=== PATIENT | male | born 1950 | race Caucasian/White ===

== ENCOUNTER 2016-06-27 10:11 | Inpatient (IN) | payer MEDICARE, OTHER ==
[2016-06-27] VITALS (15 sets, daily range): BP systolic 113–134; BP diastolic 63–80; PULSE 56–86; RESP 12–21; O2SAT 95–100
[~2016-06-27] VITALS: Ht 188 cm; Wt 100.1 kg
[~2016-06-27 10:11] MED LIST: ALLO300T2 PO; Bupivacaine Liposome 1.3% 20 mL Inj INFILTRATE ONE; Bupivacaine Liposome 1.3% 20 mL Inj INFILTRATE SCH; CeFAZolin 2 Gm/50 mL D5W IV Premix IV ONE; CeFAZolin Inj 2 GM in IV Premix 1 EACH IV ONE; Lactated Ringer's 1,000 ML IV ONE; Tranexamic Acid 100 mg/mL 10 mL Inj IV ONE; Vancomycin Inj 1,000 MG in IV Premix 1 EACH IV ONE; Vancomycin Inj 1,500 MG in 0.9% Sodium Chloride 500 ML IV ONE
[2016-06-27] MEDS ORDERED: CeFAZolin Inj 2 gm / 50mL D5W IV ONE (10:40)
[2016-06-27] MEDS ORDERED: MULT-1018 PO (11:05)
[2016-06-27] MEDS ORDERED: VIT D PO (11:05)
[2016-06-27] MEDS ORDERED: Lactated Ringer's 1,000 ML IV SCH (12:38)
[2016-06-27] MEDS ORDERED: Lactated Ringer's 500 ML IV PRN (12:38)
--- NOTE | 2016-06-27 12:38 | PCM.HPANE ---
Patient Data Surgeon Admitting Provider: Attending Provider:Keron Bower MD Primary Care Physician:Chaitanya Leach MD Other [place] [facility] Reason for Visit Right Knee Arthritis Ht/WT & BMI Height (Feet): 6 Height (Inches): 2 Weight (Kilograms): 100.1 Body Mass Index 28.00 Allergies Coded Allergies: No Known Allergies (Unverified , 03/23/16) Past Anesthesia History Anesthesia History: Denies:: Anesthesia Reactions, Malignant Hyperthermia Diabetes History Hx Diabetes?: No MRSA MRSA: No Medications Hypertension Medication: No Home Meds Incl Beta Demetrius: No Reported Medications [Vit D] No Conflict Check Po Daily 06/27/16 Multivitamin (Multi Vitamin Daily)1 Each Tablet1 Each PO DAILY 30 Days Ref 0 06/27/16 Allopurinol 300 Mg [id number] Mg PO DAILY Ref 0 06/23/16 Discontinued Reported Medications Allopurinol 300 Mg [id number] Mg PO DAILY Ref 0 03/23/16 History History of ENT Problems?: No Hx of Heart Problems?: No Cardiovascular History: Denies:: Heart Murmur Hypertension Valvular Heart Disease Hx of Respiratory Problem?: No Respiratory History: Denies:: Asthma COPD Emphysema Oxygen Administration Use of C-PAP Machine Hx Neurologic Problems?: No Hx of GI Problems?: Yes Gastrointestinal History: Positive for:: Diverticulitis (S/P SMALL BOWEL RESECTION) Gall Bladder Disease (removed) Gastrointestinal Bleeding (REMOTE HX OF ULCERS) Denies:: Gastroesphageal Reflux (HX OF PUD) Other GI Pertinent History: prior hx of hernia repair and bowel resection per EMR Hx of Problems?: No Male Hx: Positive for:: Testicular Surgery (S/P VASECTOMY??,VAS DEFERENS RECONSTRUCTION) Denies:: Prostate Problems Scrotal Mass Skin History: Denies:: History Skin Disorders? Pressure Ulcers Hx Musculoskeletal Problems?: Yes Musculoskeletal History: Positive for:: Degenerative Joint Musculoskeletal Trauma (right knee current admission problem) Osteoarthritis Denies:: Joint Replacement Hx of Psycho/Social Problems?: No Hx Surgeries?: Yes (george, hernia, bowel resection, knee arthroscopy) Hx Any Other Health Problems?: Yes Other History: Denies:: Cancer Endocrine Disease Hospitalization Thyroid Disease History Blood Transfusions: Denies:: Blood Transfusions Hx Diabetes: No Have You Smoked inLast 12 mo: No Stop/Bang S-Snoring: Do You Snore Loudly: No T-Tired: feel tired, fatigued: No O-Obsered: Observed not breath: No P-Blood Pressure: treated: No B- Body Mass Index > 35 kg/m2: No A- Age over 50: Yes N- Neck Large Circumference: No G- Gender Male: Yes JILLIAN Total Score: 2 JILLIAN Risk Assessment: Low Risk, <3 Yes Risk Assessment Category Category 1A: Patient has history of documented sleep apnea, and HAS NOT received any narcotic, sedative or anesthesia administration during this stay. Category 1B: Patient has history of documented sleep apnea, and HAS received any narcotic , sedative or anesthesia administration during this stay Category 2: Patient has SUSPECTED Obstructive Sleep Apnea, and HAS received any narcotic , sedative or anesthesia administration during this stay. Category 3: Patient has SUSPECTED Obstructive Sleep Apnea and HAS NOT received narcotic, sedative or anesthesia administration during this stay. Category 4: Outpatient in Procedural Areas with known sleep apnea or who screen positive for High Risk via the STOP/BANG questionnaire. Exam Exam General Appearance: Alert, Oriented X3, Cooperative, No Acute Distress HEENT/AIRWAY: MP 2 Lungs: Clear to Auscultation, Normal Air Movement Heart: Exam Unremarkable, Regular Rate/Rhythm, No Murmurs/Rubs/Gallops Meds/Labs/Diagnostics Admission Meds Current Medications Lactated Ringer's (Lr) 1,000 ml @ 120 mls/hr Q8H20M ONCE IV Last administered on 06/27/16t 10:18; Start 06/27/16 at 05:00; Stop 06/27/16 at 13:19 Plan Impression Patient chart reviewed, patient interviewed and anesthestic plan with risks, benefits, and alternatives discussed, and informed consent obtained. ASA Physical Status: ASA2 Mod Systemic Disease Anesthetic Plan: GA, Regional Block, SAB Bene/Risks/Altern/Consents: Yes HP Complete Prior to Induction: Yes Grant Lamb MD Jun 27, 2016 10:42
[2016-06-27] MEDS ORDERED: Bupivacaine Liposome 1.3% 20 mL Inj ONE (12:39)
[2016-06-27] MEDS ORDERED: 0.9% Sodium Chloride 100 ML ONE (12:39)
[2016-06-27] MEDS ORDERED: Atropine 0.4 mg/mL Inj IVPUSH PRN (12:40)
[2016-06-27] MEDS ORDERED: Ondansetron 2 mg/mL 2 mL Inj IVPUSH PRN ×2 (12:40→18:40)
[2016-06-27] MEDS ORDERED: MetoCLOpramide 5 mg/mL 2 mL Inj IVPUSH PRN ×2 (12:40→18:40)
[2016-06-27] MEDS ORDERED: fentaNYL-PF 50 mCg/mL 2 mL Inj IVPUSH PRN (12:40)
[2016-06-27] MEDS ORDERED: Phenylephrine 10,000 mCg/mL Inj IVPUSH PRN (12:40)
[2016-06-27] MEDS ORDERED: HYDROmorphone 1 mg/mL Inj IVPUSH PRN (12:40)
[2016-06-27] MEDS ORDERED: EPHEDrine Sulfate 50 mg/mL Inj IVPUSH PRN (12:40)
[2016-06-27] MEDS ORDERED: Labetalol 5 mg/mL 4 mL Inj IV PRN (12:40)
[2016-06-27] MEDS: Tranexamic Acid 100 mg/mL 10 mL Inj ONE (13:27)
[2016-06-27] MEDS ORDERED: Bupivacaine-MPF 0.25%/EPI 30 mL Inj INFILTRATE ONE ×2 (13:42)
[2016-06-27] MEDS ORDERED: Gentamicin 40 mg/mL 2 mL Inj IRRIGATION ONE ×2 (13:42)
[2016-06-27] MEDS ORDERED: Bupivacaine Liposome 1.3% 20 mL Inj INFILTRATE ONE ×2 (13:42)
[2016-06-27] MEDS ORDERED: Lactated Ringer's 1,000 ML IV ONE (14:00)
--- NOTE | 2016-06-27 15:13 | PCM.ANEP2 ---
Post Anesthesia Evaluation ASA/CMS Post Anesthesia VS in Patient's Normal Range?: Yes Resp Stable; Airway Patent?: Yes CV Function & Hydration Stable: Yes Mental Status Recovered?: Yes Pain control Satisfactory?: Yes N/V Control Satisfactory?: Yes Grant Lamb MD Jun 27, 2016 15:13
--- NOTE | 2016-06-27 15:13 | PCM.ANEP1 ---
Post Anesthesia Phase 1 PACU Phase 1 Assessment Vital Signs Vital Signs Date Time Temp Pulse Resp B/P Pulse Ox O2 Delivery O2 Flow Rate FiO2 06/27/16 15:06 36.1 65 18 121/63 100 Simple Mask 8 06/27/16 10:51 36.1 57 18 134/80 97 Room Air 06/27/16 10:41 36.1 57 18 134/80 97 Room Air Anesthetic Administered: GA, Regional Block, SAB Level of Alertness: Sleepy, easy to arouse CHOWDHURY's with Equal Strength: No Pain: No Nausea or Vomiting: No Oxygen Delivery: Simple Mask Lungs: Clear to Auscultation, Normal Air Movement Grant Lamb MD Jun 27, 2016 15:13
--- NOTE | 2016-06-27 15:31 | DRSVH ---
PROCEDURE: X-RAY RIGHT KNEE, ONE OR TWO VIEWS ([id number]) INDICATIONS: 66 year-old male with right knee replacement. TECHNIQUE: 2 postoperative view(s) of the knee acquired. COMPARISON: [facility], CR, XR KNEE ARTHRITIC SERIES LT, 06/08/2016, 9:47. [facility], CR, XR KNEE ARTHRITIC SERIES BI, 03/24/2015, 10:10. FINDINGS: Bones: Patient is status post knee joint arthroplasty. Hardware components are in expected position s. Visualized bony structures are intact. Soft tissues: Overlying postoperative changes are noted, including intra-articular surgical drain, a ir and gas. IMPRESSION: Status post right knee arthroplasty, with hardware components in expected positions. Dictated by: Noel Hart M.D. on 06/27/2016 at 15:29 Approved by: Noel Hart M.D. on 06/27/2016 at 15:29
[2016-06-27 15:45] LABS: APPEARANCE,URINE CLEAR (CLEAR,HAZY); COLOR,URINE YELLOW (YELLOW); OCCULT BLOOD,URINE NEGATIVE (NEGATIVE); UROBILINOGEN,URINE NORMAL (NORMAL)
[2016-06-27] MEDS ORDERED: Ondansetron 2 mg/mL 2 mL Inj ONE (16:40)
[2016-06-27] MEDS ORDERED: EPHEDrine/NS 5 mg/mL 5 mL Syringe ONE (16:40)
[2016-06-27] MEDS ORDERED: Glycopyrrolate 0.2 MG/ML 1mL Inj ONE (16:40)
[2016-06-27] MEDS ORDERED: fentaNYL-PF 50 mCg/mL 2 mL Inj ONE (16:40)
[2016-06-27] MEDS ORDERED: Phenylephrine/NS 100 mCg/mL 10 mL Syringe IVPUSH ONE (16:40)
[2016-06-27] MEDS ORDERED: Dexamethasone 4 mg/mL Inj ONE (16:40)
[2016-06-27] MEDS ORDERED: Propofol 10,000 mCg/mL 20 mL Inj ONE (16:40)
[2016-06-27] MEDS ORDERED: oxyCODONE-Acetamin 5-325 mg Tablet PO ONE (18:17)
[2016-06-27] MEDS ORDERED: Vancomycin Dose per Pharmacist XX ONE (18:30)
[2016-06-27] MEDS ORDERED: diphenhydrAMINE 25 mg Capsule PO PRN (18:40)
[2016-06-27] MEDS ORDERED: HYDROcodone-APAP 5-325 mg Tablet PO PRN (18:40)
[2016-06-27] MEDS: Lactated Ringer's 1,000 ML IV SCH (18:41)
[2016-06-27] MEDS ORDERED: LORazepam 0.5 mg Tablet PO PRN (18:45)
[2016-06-27] MEDS ORDERED: hydrOXYzine Inj 50 MG/1 mL SDV IM PRN (18:45)
[2016-06-27] MEDS ORDERED: Sodium Biphos-Phos 133 mL Enema RECTAL PRN (18:45)
[2016-06-27] MEDS: Ketorolac 15 mg/mL Inj IVPUSH SCH (20:02)
[2016-06-27] MEDS: Magnesium Hydroxide 10 mL Oral Concentration PO SCH (20:28)
[2016-06-27] MEDS: CeFAZolin Inj 2 GM in IV Premix 1 EACH IV SCH (20:28)
[2016-06-27] MEDS: oxyCODONE-Acetamin 5-325 mg Tablet PO PRN (23:03)
[2016-06-28 00:46] VITALS: BP 115/65; PULSE 50; RESP 16; O2SAT 95
--- NOTE | 2016-06-28 00:55 | OP ---
[address] [address] OPERATIVE REPORT PATIENT: KELLIE RUIZ : 1950 MR#: [id number] ADMIT: 06/27/2016 JOB ID: [id number] DATE OF SURGERY: 06/27/2016 PREOPERATIVE DIAGNOSIS(ES): Profound osteoarthritis right knee with significant varus deformity. POSTOPERATIVE DIAGNOSIS(ES): Profound osteoarthritis right knee with significant varus deformity. PROCEDURE: Total knee replacement right knee. SURGEON: Keron Bower MD EMBLEM FUSER TENDER: Inés Alicea PA-C. [employer] Crewmember required due to the complexity of the operation. COMPLICATIONS: None. INDICATIONS: Severe profound osteoarthritis symptoms uncontrolled by conservative treatment techniques in a patient who understands and accepts the potential for risks and complications, which include, but is not limited to infection, thromboembolic, neurovascular events, as well as potential for progressive arthritis in unresurfaced compartments. PROCEDURE: The patient was prepped and draped in usual sterile fashion. An anteromedial approach was made. The patella was subluxed laterally, cut transversely, sized to a 35. Patellar protection plate was utilized. The drill holes placed in the distal femur and a +2 depth distal femoral cut was made in 5 degrees valgus. The femur was sized to a 10 component. Chamfer block was set and chamfer cuts were made. All meniscal tissue and osteophytes were removed from the knee. The tibia was cut with the extramedullary tool. Bone fragment removed, was sized to a G tibial component fixed in appropriate position, rotation, drill holes and punch was utilized. Trial reduction was performed and a 10 mm medial was utilized. Excellent tracking, soft tissue tension, range of motion and alignment was achieved. Patient tolerated the procedure well. There were no complications at this point. Pressurized lavage followed by pressurized cementation. Excess cement was removed during the curing process. Final construct was assembled. Excellent tracking and alignment was obtained. The tourniquet was let down. Hemostasis was achieved. Deep Hemovac drain was left. The knee was closed with #2 Quill deep followed by 2-0 Vicryl, 3-0, and a 4-0 intracuticular stitch. Patient tolerated the procedure well. No complications. Taken to the recovery room in stable condition.
[2016-06-28] MEDS: Ketorolac 15 mg/mL Inj IVPUSH SCH ×2 (02:40→08:44)
[2016-06-28] MEDS: oxyCODONE-Acetamin 5-325 mg Tablet PO PRN ×5 (04:45→21:15)
[2016-06-28] MEDS: CeFAZolin Inj 2 GM in IV Premix 1 EACH IV SCH (04:45)
--- NOTE | 2016-06-28 05:00 | NUR ---
Post op Pt is doing very well post op; vitals stable, full sensation and movement in right foot, pain adequately controlled with scheduled Toradol and prn Percocet, denies nausea, carlton patent. Hemovac putting out high volume of bloody discharge; initially drained 210 ml within first 2 hours after unclamping followed by gradually slowing output over next 6 hours. Has not mobilized yet. Hourly rounding ongoing.
[2016-06-28 05:51] LABS: BASOPHILS % (AUTO) 0.1 % (0-3); EOSINOPHILS % (AUTO) 0 % (0-5); MONOCYTES % (AUTO) 9.1 % (4-12); Mean Corpuscular Hemoglobin 33.3 pg (27.0-35.0); Mean Corpuscular Volume 96.2 fL (81-100); NEUTROPHILS % (AUTO) 77.8 % (40-74); Platelet Count 169 bil/L (150-400)
[2016-06-28 06:08] VITALS: BP 123/71; PULSE 74; RESP 18; O2SAT 100
--- NOTE | 2016-06-28 08:01 | PCM.PNORTH ---
Subjective Date of Service: Jun 28, 2016 Visit Information: Reason for Visit Right Knee Arthritis Surgery/Surgery Date R TKA 06/27/16 Post-Op Day # 1 Date of Admission: Jun 27, 2016 at 16:39 Hospital Day # Subjective Patient states he has a dull achy pain that rates at about a 2 that is easily managed with oral pain medications. He is asking for his carlton to be removed so he may begin ambulating. No concerns at this time. Postop General: No Complaints, No Shortness of Breath, No Chest Pain Pain Management: PO Objective Exam Objective Patient sitting up in bed Vital Signs and I/O Vital Sign - Last Date Time Temp Pulse Resp B/P Pulse Ox O2 Delivery O2 Flow Rate FiO2 06/28/16 06:08 36.6 74 18 123/71 100 Room Air 06/27/16 15:10 8 Intake and Output 06/27/16 06/27/16 06/28/16 Cumulative From/Thru 15:00 23:00 07:00 03/23/16 12:39 - 06/28/16 06:25 Intake Total 1750 ml 500 ml 1570 ml 3820 ml Output Total 550 ml 400 ml 1455 ml 2405 ml Balance 1200 ml 100 ml 115 ml 1415 ml Intake Oral 400 ml 750 ml 1150 ml IV Total 1750 ml 100 ml 820 ml 2670 ml Output Urine Total 500 ml 400 ml 1000 ml 1900 ml Drainage Total 0 ml 455 ml 455 ml Estimated Blood Loss 50 ml 50 ml Lab & Micro Results Laboratory Tests Test 06/27/16 15:29 06/28/16 05:38 Urine Color Yellow (YELLOW) Urine Appearance Clear (CLEAR,HAZY) Urine pH 6.0 (5.0-8.0) Urine Specific [place] 1.025 (1.003-1.035) Urine Protein Negativemg/dL (NEG,TRACE) Urine Glucose (UA) Negativemg/dL (NEGATIVE) Urine Ketones Negativemg/dL (NEGATIVE) Urine Occult Blood Negative (NEGATIVE) Urine Nitrite Negative (NEGATIVE) Urine Bilirubin Negative (NEGATIVE) Urine Urobilinogen Normalmg/dL (NORMAL) Urine Leukocyte Esterase Negative (NEGATIVE) Urine RBC 0-2/hpf (0-2) Urine WBC 0-5/hpf (0-5) Urine Epithelial Cells None/hpf (NONE-MOD) Urine Crystals None seen (NONE SEEN) Urine Bacteria Few/hpf (NONE-FEW) Urine Hyaline Casts None/lpf (NONE) Urine Granular Casts None seen (NONE SEEN) Urine Waxy Casts None seen (NONE SEEN) Urine Red Blood Cell Casts None seen (NONE SEEN) Urine White Blood Cell Casts None seen (NONE SEEN) Urine Mucus None seen (None Seen) Urine Trichomonas None seen (NONE SEEN) Urine Yeast None (NONE SEEN) Urinalysis Comment None Urine Culture Reflexed Not indicated White Blood Count 9.2th/mm3 (3.8-10.1) Red Blood Count 3.96mil/mm3 (4.40-5.80) Hemoglobin 13.2g/dL (13.8-17.2) Hematocrit 38.1% (41.0-50.0) Mean Corpuscular Volume 96.2fL (81-100) Mean Corpuscular Hemoglobin 33.3pg (27.0-35.0) Mean Corpuscular Hemoglobin Concent 34.6% (32.0-37.0) Red Cell Distribution Width 13.1% (12.3-15.4) Platelet Count 169bil/L (150-400) Neutrophils (%) (Auto) 77.8% (40-74) Lymphocytes (%) (Auto) 12.9% (14-46) Monocytes (%) (Auto) 9.1% (4-12) Eosinophils (%) (Auto) 0% (0-5) Basophils (%) (Auto) 0.1% (0-3) Result Diagram: 06/28/16 0538 General Appearance: Alert, Oriented X3, Cooperative, No Acute Distress Extremities: Distal Pulses Palpable, Warm, No Compartment Syndrom Noted Postop Sensory Motor: Distal Motor Intact, Movement in Toes, Distal Sensation Intact, NVI Distally SURGICAL WOUND : Wound Location/Description Perioperative dressing clean, dry and intact Drain Location Body Site: Knee Incision General Appearance: No Direct Observation Wound Drainage Type: Hemovac (D/C today) Activity: Ambulate with PT (WBAT with FWW) Catheters: Urethral 2 Way Carlton (D/C today) Assessment & Plan Impression POD#1 right TKA Problems: Plan Weightbearing: Weightbearing as tolerated from a walker DVT prophylaxis: Aspirin 81 mg twice a day 6 weeks Physical therapy for transfers, progressive ambulation, strengthening Wound care: Perioperative dressing will be changed to an island dressing tomorrow by PA Analgesia: Continue oral pain management Discharge plan: Discharge home tomorrow most likely. Start outpatient physical therapy next week. Follow-up plan: In 2 weeks at [facility] with PA for wound check and at [address] Bower with x-rays Inés Alicea PA-C Jun 28, 2016 08:01
[2016-06-28 08:56] VITALS: BP 112/63; PULSE 69; RESP 16; O2SAT 100
--- NOTE | 2016-06-28 09:56 | NUR ---
Evaluation completed. Please go to "Notes" then click on "Assessments and Notes" (bottom left corner of screen). Then select appropriate discipline tab on top of screen.
[2016-06-28] MEDS ORDERED: Vancomycin Inj 1,500 MG in 0.9% Sodium Chloride 500 ML IV ONE (10:00)
[2016-06-28] MEDS: Lactated Ringer's 1,000 ML IV SCH ×2 (11:05→23:25)
[2016-06-28 12:57] VITALS: BP 131/79; PULSE 62; RESP 18; O2SAT 100
--- NOTE | 2016-06-28 15:55 | NUR ---
Social Work Note - Initial Assessment: D/A: See Initial Assessment, the Pt is a 66 y/o male that was admitted for right knee arthritis. The Pt's PCP is MD Chaitanya Leach and his primary insurance is Medicare with [employer] supplement, no LTC or VA benefits. EMR reviewed. SW met with the Pt to explain role and discuss discharge planning. SW telephone number written on [employer]. The Pt lives independently in a two story home in [place], no concerns noted at this time regarding the stairs. The Pt does not use any daily DME but is currently renting a FWW. He continues to drive, denies HH/SNF history. PT eval completed, recommending discharge home with OtPt PT. Pt denies any other needs at this time, SW to follow if needs arise. P: The Pt will discharge home when medically stable with providing POV transportation. Pt to follow up with OtPt PT. Pt denies any other needs at this time, SW to follow if needs arise. DIANE La Addendum: 06/28/16 at 1600 by OTILIA SHIN Amended: Links added. Addendum: 06/28/16 at 1618 by JENNA REDDING SS SW reviewed internet manager note. Jenna Redding,QUALITY SYSTEMS SPECIALIST
[2016-06-28 16:50] VITALS: BP 137/75; PULSE 60; RESP 13; O2SAT 94
--- NOTE | 2016-06-28 19:16 | NUR ---
Activity/pain Pt pain between -06/27 this shift on PO Percocet, pt up to chair with PT, short walk in mccarty, frequently out of bed walks to bathroom to void. Rodriguez removed at 0900 pt voiding without difficulty.
[2016-06-28 19:44] VITALS: BP 130/79; PULSE 67; O2SAT 100
[2016-06-28] MEDS: Magnesium Hydroxide 10 mL Oral Concentration PO SCH (20:37)
[2016-06-28] MEDS: hydrOXYzine Pamoate 25 mg Capsule PO PRN (21:13)
[2016-06-29] MEDS: oxyCODONE-Acetamin 5-325 mg Tablet PO PRN ×4 (00:45→12:03)
--- NOTE | 2016-06-29 02:04 | NUR ---
PAIN/MOBILITY Patient has been managing his pain well most of the day. Becoming more sore overnight. Encouraged to continue with exercises but to also not over exert himself. Ortho checks wnl. Appears to be resting well at this time.
[2016-06-29 05:15] VITALS: BP 143/83; PULSE 96; RESP 13; O2SAT 95
[2016-06-29] MEDS: hydrOXYzine Pamoate 25 mg Capsule PO PRN (08:29)
--- NOTE | 2016-06-29 09:16 | PCM.PNORTH ---
Subjective Date of Service: Jun 29, 2016 Visit Information: Reason for Visit Right Knee Arthritis Surgery/Surgery Date R TKA 06/27/16 Post-Op Day # 2 Date of Admission: Jun 27, 2016 at 16:39 Hospital Day # Subjective Patient reports she is doing quite well. He walked 250 feet and did 9 stairs. He would like to home this morning. He has both knee-high and thigh-high compression stockings. He has outpatient physical therapy scheduled to start next week Postop General: No Complaints, No Shortness of Breath, No Chest Pain Pain Management: PO Objective Exam Objective Patient is seen sitting up in bed Vital Signs and I/O Vital Sign - Last Date Time Temp Pulse Resp B/P Pulse Ox O2 Delivery O2 Flow Rate FiO2 06/29/16 05:15 36.7 96 13 143/83 95 Room Air 06/27/16 15:10 8 Intake and Output 06/28/16 06/28/16 06/29/16 Cumulative From/Thru 15:00 23:00 07:00 03/23/16 12:39 - 06/29/16 03:01 Intake Total 1891 ml 5711 ml Output Total 1380 ml 3785 ml Balance 511 ml 1926 ml Intake Oral 1891 ml 3041 ml IV Total 2670 ml Output Urine Total 1275 ml 3175 ml Drainage Total 105 ml 560 ml Estimated Blood Loss 50 ml # Voids 1 1 Result Diagram: 06/28/16 0538 General Appearance: Alert, Oriented X3, Cooperative, No Acute Distress Extremities: Distal Pulses Palpable, No Compartment Syndrom Noted, Thigh & Calf Soft/Nontender Postop Sensory Motor: Distal Motor Intact, NVI Distally SURGICAL WOUND : Wound Location/Description Right knee: Surgical dressing is removed. The wound is clean, dry and intact. There is no drainage or erythema. Steri-Strips are in place. The wound is cleansed with hydrogen peroxide and a nylon dressing applied. The drain portal site was cleansed with peroxide and a 2 x 2 gauze and Tegaderm were applied. Activity: Ambulate with PT (WBAT with FWW) Catheters: None Assessment & Plan Impression Status post right total knee arthroplasty Problems: Plan Weightbearing: Weightbearing as tolerated with walker DVT prophylaxis: aspirin 81 mg twice a day 6 weeks Physical therapy for transfers, progressive ambulation, therapeutic exercise Wound care: Dressing change by PA today Discharge plan: Discharge home today. Start outpatient physical therapy next week Discharge instructions are reviewed Follow-up plan: In 2 weeks at [facility] with LUIS for wound check and at [address] Bower with x-rays Pain Management: Percocet, oxycodone VTE Prophylaxis: SCDs, Other (aspirin) Resuscitation Status: CPR: Attempt Resuscitation Emily Donohue PA-C Jun 29, 2016 09:16
--- NOTE | 2016-06-29 10:07 | PCM.DIORTH ---
Ortho Discharge Instruction Date of Service: Jun 29, 2016 Dates of Hospitalization Date of Hospital Admission Jun 27, 2016 at 16:39 Providers Admitting Physician: Keron Bower MD Primary Care Physician: Chaitanya Leach MD Attending Physician: Keron Bower MD Diet Discharge Diet: No restrictions Activity Discharge Activity-General: Balance rest and activity, Elevate & ice extremity Right Lower Extremity: Weight Bearing as tolerated Range of motion restrictions: No restrictions with motion. Push youself to bend more each day Discharge Assist Device: Front Wheeled Walker Dressing and Incisional Care Discharge Dressing Care: Keep dressing clean, dry & intact Discharge Hygiene: May shower Additional Instructions Discharge Instructions Ice the knee 6-8 times a day for 20-30 minutes at a time Every hour of the day that you are awake, get up and walk or do some of the exercises. Gradually increase each day Push yourself with bending and straightening the knee. It will hurt but you need to push yourself. Every afternoon lay down with the leg up on pillows above the level of the heart to help decrease swelling. Continue wearing thigh-high compression stockings for 3-4 weeks Follow Up Plan Follow Up Plan At [facility] in 2 weeks with LUIS for wound check, and at [address] Bower with x-ray Call your provider for: Fever, Chills, Shortness of breath, Vomitting, Drainage at incision, Wound redness, Increasing pain Emily Donohue PA-C Jun 29, 2016 10:07
--- NOTE | 2016-06-29 10:10 | PCM.DC.ORT ---
Discharge Summary Date of Service: Jun 29, 2016 Date of Hospital Admission: Jun 27, 2016 at 16:39 Date of Surgery: Jun 27, 2016 Date of Discharge: Jun 29, 2016 Reason for Hospitalization: Right knee arthritis Procedures Performed: Right total knee arthroplasty Hospital Course: The patient was admitted to the hospital on 06/27/2016 and underwent the above procedure. Antibiotic prophylaxis consisting of Ancef and vancomycin. The surgeon was Dr. Bower. Patient tolerated the procedure well and was transferred to recovery room in stable condition. Patient had physical therapy to work on ambulation and transfers. Weightbearing as tolerated with walker. Pain was managed with Dilaudid, Percocet, Vistaril, Toradol. DVT prophylaxis: Aspirin 81 mg twice a day. Patient progressed extremely well with physical therapy, ambulating 250' and walking stairs. POD-2 was discharged home with his family to assist in his care.. Follow-up: at [facility] 2 weeks postop for wound check and at [address] Bower with x-ray Diagnosis at Time of Discharge Status post right total knee arthroplasty Problems: Disposition: Discharged home in stable condition Discharge Instructions: Ice the knee 6-8 times a day for 20-30 minutes at a time Every hour of the day that you are awake, get up and walk or do some of the exercises. Gradually increase each day Push yourelf with bending and straightening the knee. It will hurt but you need to push yourself. Every afternoon lay down with the leg up on pillows above the level of the heart to help decrease swelling. Continue wearing thigh-high compression stockings for 3-4 weeks ([Vit D]) PO DAILY Allopurinol (Allopurinol) 300 Mg Tablet 300 MG PO DAILY Aspirin Chew (Aspirin Chew) 81 Mg Chew 81 MG PO BID Docusate Sodium (Colace) 100 Mg Capsule 100 MG PO BID PRN PRN For Constipation Hydroxyzine Pamoate (HydrOXYzine Pamoate) 25 Mg Capsule 25 MG PO Q4H PRN PRN For Spasm Multivitamin (Multi Vitamin Daily) 1 Each Tablet 1 EACH PO DAILY oxyCODONE-Acetaminophen 5-325 mg (oxyCODONE-Acetaminophen 5-325 mg) 1 Each Tablet 1-2 TAB PO Q4H PRN PRN For Pain Emily Donohue PA-C Jun 29, 2016 10:10
[2016-06-29] MEDS ORDERED: OXYC1TAB24 PO (10:36)
[2016-06-29] MEDS ORDERED: ASPI81TA3 PO (10:36)
[2016-06-29] MEDS ORDERED: DOCU-41 PO (10:36)
[2016-06-29] MEDS ORDERED: HYDR-3797 PO (10:36)
--- NOTE | 2016-06-29 11:17 | NUR ---
Social Work- discharge: Data:EMR Reviewed. Pt is on day 2 of hospitalization for right knee per H&P. Pt is medically stable for discharge. PT has seen pt and recommended home with outpt PT. SW confirmed plan home. Pt's to provide transport home today. No other discharge needs identified. All updated and agreeable to plan. Assessment:Pt who is independent at baseline. Plan:Pt to discharge home today via POV. No other discharge needs identified. All updated and agreeable to plan. DIANE Laws
--- NOTE | 2016-06-29 17:43 | NUR ---
Discharge note- Right knee dressing dry and intact. Patient up in chair. Oral pain meds effective for incision pain. Discharged to home with and personal belongings.
== END 2016-06-29 12:30 | disposition home or self-care (01) | DRG 470 ==
LOC: SAS 10:11 → OSC 16:39
PROVIDERS: ADMIT Orthopaedic Surgery; ATTEND Orthopaedic Surgery
PROC: 0SRC0J9 Replacement of Right Knee Joint with Synthetic Substitute, Cemented, Open Approach (ICD-10-PCS; principal; 2016-06-27 11:45)
DX: M17.11 Unilateral primary osteoarthritis, right knee (principal)